=== PATIENT | female | born 1990 | race Caucasian/White ===

== ENCOUNTER 2016-09-23 17:55 | Emergency (ER) | payer OTHER ==
--- NOTE | 2016-09-23 19:16 | DIAGNOSTIC IMAGING REPORT ---
PROCEDURE: CT HEAD WITHOUT CONTRAST INDICATION: HEADACHE TECHNIQUE: Axial CT images were acquired through the head. Coronal and sagittal reformations were created. COMPARISON: None. FINDINGS: No intracranial hemorrhage or extraaxial fluid collections. Ventricles are normal in size, shape and position. There is no mass, mass effect or midline shift. The goode-white matter differentiation is normal. There is no edema. The calvarium is intact. The paranasal sinuses and mastoid air cells are normally aerated. The extracranial soft tissues and orbits are normal. IMPRESSION: 1. No CT evidence of acute intracranial process. 2. Findings discussed with Kelsie at [address] scans at this facility use dose modulation, iterative reconstruction, and/or weight-based dosing when appropriate to reduce radiation dose to as low as reasonably achievable.
--- NOTE | 2016-09-23 19:39 | DIAGNOSTIC IMAGING REPORT ---
PROCEDURE: XR ANKLE 3 OR 4 VIEWS - RIGHT INDICATION: TRAUMA/INJURY TECHNIQUE: Four views. COMPARISON: None. FINDINGS: There is mild to moderate soft tissue swelling over the lateral malleolus of. Osseous structures and joint spaces are normal. IMPRESSION: 1. Mild to moderate soft tissue swelling over the lateral malleolus. 2. Otherwise negative right ankle.
--- NOTE | 2016-09-23 19:41 | DIAGNOSTIC IMAGING REPORT ---
PROCEDURE: XR THORACIC SPINE 3 VIEWS INDICATION: Horse fall. TECHNIQUE: Three views. COMPARISON: None. FINDINGS: Osseous structures and disc spaces are normal. No evidence of an acute process or fracture. IMPRESSION: 1. Negative thoracic spine.
--- NOTE | 2016-09-23 19:41 | DIAGNOSTIC IMAGING REPORT ---
PROCEDURE: XR CERVICAL SPINE 2 OR 3 VIEW INDICATION: NECK TRAUMA/INJURY TECHNIQUE: Three views. COMPARISON: Compared to radiographs of the cervical spine on 03/31/2015. FINDINGS: Straightening of the cervical lordosis. Osseous structures and disc spaces are normal. No evidence of an acute process or fracture. IMPRESSION: 1. Straightening of the cervical lordosis which may be secondary to positional changes or cervical spasm. 2. Otherwise negative cervical spine.
--- NOTE | 2016-09-23 19:46 | DIAGNOSTIC IMAGING REPORT ---
PROCEDURE: XR LUMBAR SPINE 2 OR 3 VIEWS INDICATION: Horse fall. TECHNIQUE: Three views. COMPARISON: None. FINDINGS: Straightening of the lumbar lordosis. Osseous structures and disc spaces are normal. No evidence of an acute process or fracture. IMPRESSION: 1. Straightening of the lumbar lordosis which may be a reflection of positional changes or lumbar spasm. 2. Otherwise negative lumbar spine. 3. Findings discussed with PAC. Sam
--- NOTE | 2016-09-23 20:42 | ED ORDER SUMMARY ---
..... Patient: TRISH CADENA OrderSheet [facility] VisitID: [id number] [address] [place] [address] 26y, F Registration Date/Time: 09/23/2016 ORDER SHEET Weight: 58.0 kg (stated) Allergies: Hydrocodone, Topical acne cream GENERAL ORDERS: - (gown) (18:30 09/23/2016 EKoroleva P.A.-C) (18:57 PWeiler ER Tech1) Cervical Spine 2 or 3V Urgent (18:30 09/23/2016 EKoroleva P.A.-C) (Ack 18:33 PWeiler ER Tech1) (19:11 KKnebel R.N.) CT Head wo Cont Urgent (18:30 09/23/2016 EKoroleva P.A.-C) (Ack 18:33 PWeiler ER Tech1) (19:11 KKnebel R.N.) Ankle 3 or 4V Right Urgent (18:30 09/23/2016 EKoroleva P.A.-C) (Ack 18:33 PWeiler ER Tech1) (19:11 KKnebel R.N.) Thoracic Spine 3V Urgent (18:36 09/23/2016 EKoroleva P.A.-C) (Ack 18:40 PWeiler ER Tech1) (19:11 KKnebel R.N.) Lumbar Spine 2 or 3V Urgent (18:36 09/23/2016 EKoroleva P.A.-C) (Ack 18:40 PWeiler ER Tech1) (19:11 KKnebel R.N.) POC - Urine hCG (18:40 09/23/2016 EKoroleva P.A.-C) (18:57 PWeiler ER Tech1) Vitals (19:01 09/23/2016 EKoroleva P.A.-C) (19:46 KKnebel R.N.) Umesh Wrap (20:40 09/23/2016 EKoroleva P.A.-C) Splint (LE) (Right) (Air Splint) (20:48 09/23/2016 Deanna Arndt) MEDICATION ORDERS: IV FLUIDS: IV Saline Lock (18:31 09/23/2016 Deanna Arndt) (19:39 Marion R.N.) Fentanyl IV 50 mcg (HIGH ALERT MEDICATION, NOW) (18:36 09/23/2016 Deanna Arndt) (19:39 Marion R.N.) ORDER SHEET NOTES: [Electronically signed by Ivania Iglesias P.A.-C (21:34 09/23/2016)] [Electronically signed by Devendra Andino R.N. (23:19 09/23/2016)] [Electronically locked/signed by Devendra Andino R.N. (23:19 09/23/2016)]
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
--- NOTE | 2016-09-23 20:42 | ED ORDER SUMMARY ---
..... Patient: TRISH CADENA OrderSheet [facility] VisitID: [id number] [address] [place] [address] 26y, F Registration Date/Time: 09/23/2016 ORDER SHEET Weight: 58.0 kg (stated) Allergies: Hydrocodone, Topical acne cream GENERAL ORDERS: - (gown) (18:30 09/23/2016 EKoroleva P.A.-C) (18:57 PWeiler ER Tech1) Cervical Spine 2 or 3V Urgent (18:30 09/23/2016 EKoroleva P.A.-C) (Ack 18:33 PWeiler ER Tech1) (19:11 KKnebel R.N.) CT Head wo Cont Urgent (18:30 09/23/2016 EKoroleva P.A.-C) (Ack 18:33 PWeiler ER Tech1) (19:11 KKnebel R.N.) Ankle 3 or 4V Right Urgent (18:30 09/23/2016 EKoroleva P.A.-C) (Ack 18:33 PWeiler ER Tech1) (19:11 KKnebel R.N.) Thoracic Spine 3V Urgent (18:36 09/23/2016 EKoroleva P.A.-C) (Ack 18:40 PWeiler ER Tech1) (19:11 KKnebel R.N.) Lumbar Spine 2 or 3V Urgent (18:36 09/23/2016 EKoroleva P.A.-C) (Ack 18:40 PWeiler ER Tech1) (19:11 KKnebel R.N.) POC - Urine hCG (18:40 09/23/2016 EKoroleva P.A.-C) (18:57 PWeiler ER Tech1) Vitals (19:01 09/23/2016 EKoroleva P.A.-C) (19:46 KKnebel R.N.) Umesh Wrap (20:40 09/23/2016 EKoroleva P.A.-C) Splint (LE) (Right) (Air Splint) (20:48 09/23/2016 Deanna Arndt) MEDICATION ORDERS: IV FLUIDS: IV Saline Lock (18:31 09/23/2016 Deanna Arndt) (19:39 Marion R.N.) Fentanyl IV 50 mcg (HIGH ALERT MEDICATION, NOW) (18:36 09/23/2016 Deanna Arndt) (19:39 Marion R.N.) ORDER SHEET NOTES: [Electronically signed by Ivania Iglesias P.A.-C (21:34 09/23/2016)] [Electronically signed by Devendra Andino R.N. (23:19 09/23/2016)] [Electronically locked/signed by Devendra Andino R.N. (23:19 09/23/2016)]
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
--- NOTE | 2016-09-23 23:19 | ED MED RECONCILIATION SUMMARY ---
Patient: TRISH CADENA Medication Reconciliation Report [facility] VisitID: [id number] [address] [place] [address] 26y, F Registration Date/Time: 09/23/2016 Weight: 58.0 kg Height/Length: 68 in. BMI: 19.4 ALLERGIES: Hydrocodone, Topical acne cream The patient's Home Medications are listed below: THE FOLLOWING MEDICATIONS NEED TO BE RECONCILED: OxyCODONE HCl Oral (5 mg) 2 tablets, daily, for MD Johnson Oral Ranitidine HCl Oral Vitamins/Minerals Oral The source(s) of the original Home Medication information: patient The following Medications were given to the patient in the Emergency Department: Fentanyl [IVP] IVP 50 mcg, administered: 09/23/2016 7:39:00 PM The following Medications were prescribed to the patient: Take OTC medications according to label instructions. Available over the counter. -- Ivania Iglesias, P.A.-C Acetaminophen (available over the counter): take according to label instructions. -- Ivania Iglesias, P.A.-C
--- NOTE | 2016-09-23 23:19 | ED MAR SUMMARY ---
..... Medication Administration Record [facility] [address] [place] [address] Patient: TRISH CADENA Visit ID: [id number] 26y, F Weight: 58.0 kg Height/Length: 68 in BMI: 19.4 ALLERGIES: Hydrocodone, Topical acne cream Given 19:39 09/23/2016 Samantah Richardson R.N. Medication Administered: FENTANYL [IVP], Dose: 50 mcg IVP over 2 minute(s), Site: #1 right AC. Medication Ordered: Fentanyl IV 50 mcg (HIGH ALERT MEDICATION, NOW).
--- NOTE | 2016-09-23 23:19 | ED MAR SUMMARY ---
..... Medication Administration Record [facility] [address] [place] [address] Patient: TRISH CADENA Visit ID: [id number] 26y, F Weight: 58.0 kg Height/Length: 68 in BMI: 19.4 ALLERGIES: Hydrocodone, Topical acne cream Given 19:39 09/23/2016 Samantha Richardson R.N. Medication Administered: FENTANYL [IVP], Dose: 50 mcg IVP over 2 minute(s), Site: #1 right AC. Medication Ordered: Fentanyl IV 50 mcg (HIGH ALERT MEDICATION, NOW).
--- NOTE | 2016-09-23 23:19 | ED MED RECONCILIATION SUMMARY ---
Patient: TRISH CADENA Medication Reconciliation Report [facility] VisitID: [id number] [address] [place] [address] 26y, F Registration Date/Time: 09/23/2016 Weight: 58.0 kg Height/Length: 68 in. BMI: 19.4 ALLERGIES: Hydrocodone, Topical acne cream The patient's Home Medications are listed below: THE FOLLOWING MEDICATIONS NEED TO BE RECONCILED: OxyCODONE HCl Oral (5 mg) 2 tablets, daily, for MD Johnson Oral Ranitidine HCl Oral Vitamins/Minerals Oral The source(s) of the original Home Medication information: patient The following Medications were given to the patient in the Emergency Department: Fentanyl [IVP] IVP 50 mcg, administered: 09/23/2016 7:39:00 PM The following Medications were prescribed to the patient: Take OTC medications according to label instructions. Available over the counter. -- Ivania Iglesias, P.A.-C Acetaminophen (available over the counter): take according to label instructions. -- Ivania Iglesias, P.A.-C
== END 2016-09-23 21:00 | disposition home or self-care (01) ==
LOC: ED SRH 17:55
DX: S09.90XA Unspecified injury of head, initial encounter (principal); S93.431A Sprain of tibiofibular ligament of right ankle, initial encounter; S30.810A Abrasion of lower back and pelvis, initial encounter; W55.12XA Struck by horse, initial encounter; Y93.9 Activity, unspecified; Y92.009 Unspecified place in unspecified non-institutional (private) residence as the place of occurrence of the external cause; Y99.9 Unspecified external cause status; K21.9 Gastro-esophageal reflux disease without esophagitis